=== PATIENT | female | born 1965 | race Caucasian/White ===

== ENCOUNTER 2018-09-26 10:50 | Emergency (ER) | payer SELFPAY ==
[2018-09-26] MEDS ORDERED: MEPERIDINE HCL 50 MG/ML AMP ONE (11:44)
[2018-09-26] MEDS ORDERED: METOCLOPRAMIDE 10 MG/2mL INJ ONE (11:44)
[2018-09-26] MEDS ORDERED: IBUPROFEN 400 MG TAB ONE (11:45)
[2018-09-26] MEDS ORDERED: NA CHLORIDE 0.9% 50 ML IV ONE (11:45)
[2018-09-26] MEDS ORDERED: NA CHLORIDE 0.9% 1,000 ML ONE (11:45)
[2018-09-26] MEDS ORDERED: ONDANSETRON 4 MG/2 ML VIAL ONE (11:45)
--- NOTE | 2018-09-26 15:15 | EDPHYS ---
Physician Documentation [facility] Name: Becca Nagy Age: 53 yrs Sex: Female : 1965 Arrival Date: 09/26/2018 Time: 10:53 Bed 18 Private MD: ED Physician Jayden Akhtar HPI: 09/26 11:27 This 53 yrs old Female presents to ER via Ambulatory with complaints of rn Headache, Nausea. 11:27 The patient complains of pain to the forehead, left side of the back of head and right rn side of the back of head. The patient describes the headache as aching. Onset: The symptoms/episode began/occurred 3 day(s) ago. Severity of symptoms: At its worst the pain was moderate, in the emergency department the pain is unchanged. The symptoms are alleviated by nothing. the symptoms are aggravated by lights, movement, noise. The patient has experienced similar episodes in the past. The patient has not recently seen a physician. 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 No personal or family hx of brain tumor or aneurysm, no recent head trauma, no fever, no neck stiffness, no rash. . 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 - Social history:: Smoking status: Patient uses tobacco products, smokes one-half pack cigarettes per day. - Ebola Screening: : Patient denies travel to an Ebola-affected area in the 21 days before illness onset. - Family history:: not pertinent. - Hospitalizations: : No recent hospitalization is reported. 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 Head/Face: Normocephalic, atraumatic. Eyes: Pupils equal round and reactive to light, extra-ocular motions intact. Lids and lashes normal. Conjunctiva and sclera are non-icteric and not injected. Cornea within normal limits. Periorbital areas with no swelling, redness, or edema. ENT: MMM Neck: Trachea midline, no thyromegaly or masses palpated, and no cervical lymphadenopathy. Supple, full range of motion without nuchal rigidity, or vertebral point tenderness. No Meningismus. Skin: Warm, dry with normal turgor. Normal color with no rashes, no lesions, and no evidence of cellulitis. MS/ Extremity: Pulses equal, no cyanosis. Neurovascular intact. Full, normal range of motion. Equal circumference. Neuro: Awake and alert, GCS 15, oriented to person, place, time, and situation. Cranial nerves II-XII grossly intact. Motor strength 5/5 in all extremities. Sensory grossly intact. Cerebellar exam normal. Normal gait. Vital Signs: 10:57 BP 124 / 80; Pulse 57; Resp 18; Temp 97.6(O); Pulse Ox 100% on R/A; Weight 70.31 kg aj1 (R); Height 5 ft. 6 in. (167.64 cm) (R); Pain 10/10; 12:00 BP 110 / 74; Pulse 54; Resp 18; Pulse Ox 97% on R/A; ph 13:00 BP 99 / 76; Pulse 47; Resp 16; Pulse Ox 99% on R/A; ph 14:00 BP 114 / 78; Pulse 52; Resp 18; Temp 97.4; Pulse Ox 99% on R/A; ph 10:57 Body Mass Index 25.02 (70.31 kg, 167.64 cm) aj1 Freeland Coma Score: 13:38 Eye Response: spontaneous(4). Verbal Response: oriented(5). Motor Response: obeys rn commands(6). Total: 15. MDM: 10:57 Patient medically screened. rn 13:38 Differential diagnosis: hypertensive headache, migraine, tension headache, vasomotor rn headache. Data reviewed: vital signs, nurses notes, and as a result, I will discharge patient. Counseling: I had a detailed discussion with the patient and/or guardian regarding: the historical points, exam findings, and any diagnostic results supporting the discharge/admit diagnosis, the need for outpatient follow up, to return to the emergency department if symptoms worsen or persist or if there are any questions or concerns that arise at home. Response to treatment: the patient's symptoms have markedly improved after treatment, and as a result, I will discharge patient. Special discussion: I discussed with the patient/guardian in detail that at this point there is no indication for admission to the hospital. It is understood, however, that if the symptoms persist or worsen the patient needs to return immediately for re-evaluation. 09/26 11:25 Order name: IV Start; Complete Time: 11:27 rn Administered Medications: 11:45 Drug: Demerol 50 mg Route: IVP; Site: right forearm; ph 13:00 Follow up: Response: No adverse reaction; Pain is decreased ph 11:45 Drug: NS 0.9% 1000 ml Route: IV; Rate: 1000 ml; Site: right forearm; ph 16:26 Follow up: Response: No adverse reaction; Pain is decreased; IV Status: Completed ph infusion; IV Intake: 1000ml 11:47 Drug: Reglan 10 mg Route: IVP; Site: right forearm; ph 13:00 Follow up: Response: No adverse reaction; Pain is decreased ph 11:50 Drug: Motrin 800 mg Route: PO; ph 13:00 Follow up: Response: No adverse reaction; Pain is decreased ph Disposition: 09/26/18 13:39 Discharged to Home. Impression: Headache. - Condition is Stable. - Discharge Instructions: Migraine Headache. - Prescriptions for orphenadrine citrate 100 mg Oral Tablet Sustained Release - take 1 tablet by ORAL route 2 times per day As needed; 20 tablet. - Medication Reconciliation Form, Thank You Letter, Antibiotic Education, Prescription Opioid Use, Work release form form. - Follow up: Private Physician; When: As needed; Reason: Recheck today's complaints, Re-evaluation by your physician. Follow up: Arslan Tafoya MD; When: As needed; Reason: Recheck today's complaints, Re-evaluation by your physician. - Problem is new. - Symptoms have improved. Signatures: Liza Love RN RN aj1 Jayden Akhtar MD MD rn Hall, Patricia, RN RN ph Corrections: (The following items were deleted from the chart) 13:43 13:39 09/26/2018 13:39 Discharged to Home. Impression: Headache. Condition is Stable. rn Forms are Medication Reconciliation Form, Thank You Letter, Antibiotic Education, Prescription Opioid Use. Follow up: Private Physician; When: As needed; Reason: Recheck today's complaints, Re-evaluation by your physician. Problem is new. Symptoms have improved. rn 14:13 13:43 09/26/2018 13:39 Discharged to Home. Impression: Headache. Condition is Stable. ph Discharge Instructions: Migraine Headache. Prescriptions for orphenadrine citrate 100 mg Oral Tablet Sustained Release - take 1 tablet by ORAL route 2 times per day As needed; 20 tablet. and Forms are Medication Reconciliation Form, Thank You Letter, Antibiotic Education, Prescription Opioid Use. Follow up: Private Physician; When: As needed; Reason: Recheck today's complaints, Re-evaluation by your physician. Follow up: Arslan Tafoya; When: As needed; Reason: Recheck today's complaints, Re-evaluation by your physician. Problem is new. Symptoms have improved. rn
--- NOTE | 2018-09-26 15:15 | ER ---
Nurse's Notes [facility] Name: Becca Nagy Age: 53 yrs Sex: Female : 1965 Arrival Date: 09/26/2018 Time: 10:53 Bed 18 Private MD: Diagnosis: Headache Presentation: 09/26 10:55 Presenting complaint: Patient states: "I'm having migraine headaches again, I want to aj1 sleep all the time, its in my neck its going in my back, its making me nauseous." Reports she has been having this migraine for the past 2 weeks. She has been taking Tylenol at home with no relief. Transition of care: patient was not received from another setting of care. Onset of symptoms was September 2018. Risk Assessment: Do you want to hurt yourself or someone else? Patient reports no desire to harm self or others. Initial Sepsis Screen: Does the patient meet any 2 criteria? No. Patient's initial sepsis screen is negative. Does the patient have a suspected source of infection? No. Patient's initial sepsis screen is negative. Care prior to arrival: None. 10:55 Method Of Arrival: [facility] 10:55 Acuity: ARIEL 3 aj1 Triage Assessment: 10:57 Headache History: The patient has had previous headaches and this one is similar to aj1 previous episodes. General: Appears in no apparent distress. uncomfortable, Behavior is calm, cooperative, appropriate for age. Pain: Complains of pain in forehead and occipital area Pain radiates to left trapezius, right trapezius, right arm and neck Pain currently is 10 out of 10 on a pain scale. Pain began 2 weeks ago Also complains of nausea, fatigue. Neuro: Level of Consciousness is awake, alert, obeys commands, Oriented to person, place, time, situation. Neuro: Reports headache. Cardiovascular: Patient's skin is warm and dry. Respiratory: Airway is patent Respiratory effort is even, unlabored, Respiratory pattern is regular, symmetrical. 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 - Social history:: Smoking status: Patient uses tobacco products, smokes one-half pack cigarettes per day. - Ebola Screening: : Patient denies travel to an Ebola-affected area in the 21 days before illness onset. - Family history:: not pertinent. - Hospitalizations: : No recent hospitalization is reported. Screenin:26 Abuse screen: Denies threats or abuse. Denies injuries from another. Nutritional ph screening: No deficits noted. Tuberculosis screening: No symptoms or risk factors identified. Fall Risk None identified. Assessment: 11:24 General: Appears in no apparent distress. uncomfortable, well groomed, Behavior is ph calm, cooperative, appropriate for age. Pain: Complains of pain in face and left foot. Neuro: Level of Consciousness is awake, alert, obeys commands, Oriented to person, place, time, situation, Moves all extremities. Full function Speech is normal, Pupils are PERRLA, Reports dizziness, headache photophobia. Cardiovascular: Capillary refill < 3 seconds in bilateral fingers Patient's skin is warm and dry. Respiratory: Airway is patent Respiratory effort is even, unlabored, Respiratory pattern is regular, symmetrical. GI: Reports nausea, Patient currently denies abdominal pain, diarrhea, vomiting. Derm: Skin is intact, Skin is pink, warm \\T\\ dry. Musculoskeletal: Circulation, motion, and sensation intact. Range of motion: intact in all extremities, Swelling present in left fourth toe Reports pain in left fourth toe. 12:30 Reassessment: Patient appears in no apparent distress at this time. Patient and/or ph family updated on plan of care and expected duration. Pain level reassessed. Pt resting quietly w/ eyes closed, VSS. 13:30 Reassessment: Patient appears in no apparent distress at this time. No changes from ph previously documented assessment. Patient and/or family updated on plan of care and expected duration. Pain level reassessed. Pt awakens easily, reports that pain and nausea have improved. 14:00 Reassessment: Patient appears in no apparent distress at this time. Patient and/or ph family updated on plan of care and expected duration. Pain level reassessed. Patient is alert, oriented x 3, equal unlabored respirations, skin warm/dry/pink. Patient states feeling better. Patient states symptoms have improved. Vital Signs: 10:57 BP 124 / 80; Pulse 57; Resp 18; Temp 97.6(O); Pulse Ox 100% on R/A; Weight 70.31 kg aj1 (R); Height 5 ft. 6 in. (167.64 cm) (R); Pain 10/10; 12:00 BP 110 / 74; Pulse 54; Resp 18; Pulse Ox 97% on R/A; ph 13:00 BP 99 / 76; Pulse 47; Resp 16; Pulse Ox 99% on R/A; ph 14:00 BP 114 / 78; Pulse 52; Resp 18; Temp 97.4; Pulse Ox 99% on R/A; ph 10:57 Body Mass Index 25.02 (70.31 kg, 167.64 cm) aj1 Angela Coma Score: 13:38 Eye Response: spontaneous(4). Verbal Response: oriented(5). Motor Response: obeys rn commands(6). Total: 15. ED Course: 10:53 Patient arrived in ED. mr 10:57 Jayden Akhtar MD is Attending Physician. rn 10:57 Triage completed. aj1 10:57 Arm band placed on Patient placed in an exam room. aj1 11:20 Initial lab(s) drawn, by co, sent to lab. Inserted saline lock: 20 gauge in right ph forearm, using aseptic technique. 11:24 Yany Morton, RN is Primary Nurse. ph 11:26 Patient has correct armband on for positive identification. Bed in low position. Call ph light in reach. Side rails up X2. Pulse ox on. NIBP on. Door closed. Noise minimized. Lights dimmed. Warm blanket given. Pillow given. 13:43 Arslan Tafoya MD is Referral Physician. rn 14:00 No provider procedures requiring assistance completed. IV discontinued, intact, ph bleeding controlled, No redness/swelling at site. Pressure dressing applied. Administered Medications: 11:45 Drug: Demerol 50 mg Route: IVP; Site: right forearm; ph 13:00 Follow up: Response: No adverse reaction; Pain is decreased ph 11:45 Drug: NS 0.9% 1000 ml Route: IV; Rate: 1000 ml; Site: right forearm; ph 16:26 Follow up: Response: No adverse reaction; Pain is decreased; IV Status: Completed ph infusion; IV Intake: 1000ml 11:47 Drug: Reglan 10 mg Route: IVP; Site: right forearm; ph 13:00 Follow up: Response: No adverse reaction; Pain is decreased ph 11:50 Drug: Motrin 800 mg Route: PO; ph 13:00 Follow up: Response: No adverse reaction; Pain is decreased ph Intake: 16:26 IV: 1000ml; Total: 1000ml. ph Outcome: 13:39 Discharge ordered by . rn 14:13 Patient left the ED. ph 14:13 Discharged to home ambulatory. ph 14:13 Condition: good 14:13 Discharge instructions given to patient, Instructed on discharge instructions, follow up and referral plans. medication usage, Demonstrated understanding of instructions, follow-up care, medications, Prescriptions given X 1. Signatures: Liza Love RN RN ajDimple Miller Roman, MD MD rn Hall, Patricia, RN RN ph Corrections: (The following items were deleted from the chart) 11:56 11:53 NS 0.9% 1000 ml IV at 1000 ml in right forearm ph ph
[2018-09-26 16:17] VITALS: BP 124/80; TEMP 97.6; O2SAT 100
== END 2018-09-26 14:13 | disposition home or self-care (01) ==
LOC: ER 10:50
DX: R51 Headache (principal); R11.0 Nausea; I10 Essential (primary) hypertension; F17.210 Nicotine dependence, cigarettes, uncomplicated
CPT/HCPCS: 96361; 96374; 96375; 99284; J2175; J2405; J2765; J7030

== ENCOUNTER 2018-10-28 17:39 | Emergency (ER) | payer SELFPAY ==
[2018-10-28 18:08] LABS: Urine Blood 2+ (NEG); Urine Glucose TRACE (NEG); Urine Protein 3+ (NEG); Urine pH 6.5 (5.0-7.0)
--- NOTE | 2018-10-28 19:04 | RAD REPORT ---
EXAM DESCRIPTION: RAD - Hip Left 2 View - 10/28/2018 6:54 pm CLINICAL HISTORY: Hip pain, left lower quadrant and groin pain COMPARISON: None. FINDINGS: AP and frogleg views of the left hip were obtained. There is no fracture or dislocation. N o acute or destructive bony process seen. No periarticular soft tissue abnormality. No finding to suspect inguinal hernia IMPRESSION: Negative left hip examination for acute or significant findings.
[2018-10-28] MEDS ORDERED: KETOROLAC 30 MG/ML INJ ONE (19:17)
[2018-10-28 19:32] LABS: Urine Bacteria LOADED /HPF (<20); Urine Culture Reflex Order REFLEXED
--- NOTE | 2018-10-28 20:32 | EDPHYS ---
Physician Documentation [facility] Name: Becca Nagy Age: 53 yrs Sex: Female : 1965 Arrival Date: 10/28/2018 Time: 17:41 Bed 20 Private MD: None, None ED Physician Rex Sanon HPI: 10/28 18:25 This 53 yrs old Female presents to ER via Ambulatory with complaints of Hip cp Pain. 18:25 The patient or guardian reports decreased range of motion, pain. The complaints affect cp the left hip. 18:25 Onset: The symptoms/episode began/occurred suddenly, 1 hour(s) ago. cp 18:25 Associated signs and symptoms: Pertinent negatives: abdominal pain, diarrhea, cp dizziness, fever, incontinence, vomiting, weakness, injury or fall. Severity of symptoms: in the emergency department the symptoms are unchanged, despite home interventions. 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 - Social history:: Smoking status: Patient uses tobacco products, smokes one pack cigarettes per day. - Ebola Screening: : Patient negative for fever greater than or equal to 101.5 degrees Fahrenheit, and additional compatible Ebola Virus Disease symptoms Patient denies exposure to infectious person Patient denies travel to an Ebola-affected area in the 21 days before illness onset No symptoms or risks identified at this time. ROS: 18:30 Constitutional: Negative for body aches, chills, fever, poor PO intake. cp 18:30 Eyes: Negative for injury, pain, redness, and discharge. cp Exam: 18:40 Constitutional: The patient appears in no acute distress, alert, awake, non-toxic, well cp developed, well nourished, uncomfortable. 18:40 Head/Face: Normocephalic, atraumatic. cp 18:40 Eyes: Periorbital structures: appear normal, Conjunctiva: normal, no exudate, no injection, Sclera: no appreciated abnormality, Lids and lashes: appear normal, bilaterally. 18:40 ENT: External ear(s): are unremarkable, Nose: is normal, Mouth: Lips: moist, Oral mucosa: pink and intact, moist, Posterior pharynx: is normal, airway is patent, no erythema, no exudate. 18:40 Neck: ROM/movement: is normal, is supple, without pain, no range of motions limitations, no nuchal rigidity. 18:40 Chest/axilla: Inspection: normal, Palpation: is normal, no crepitus, no tenderness. 18:40 Cardiovascular: Rate: normal, Rhythm: regular. 18:40 Respiratory: the patient does not display signs of respiratory distress, Respirations: normal, no use of accessory muscles, no retractions, no splinting, no tachypnea, labored breathing, is not present. 18:40 Abdomen/GI: Inspection: abdomen appears normal, Palpation: abdomen is soft and non-tender, in all quadrants, rebound tenderness, is not appreciated, voluntary guarding, is not appreciated, involuntary guarding, is not appreciated. 18:40 Back: pain, is absent, ROM is normal. 18:40 Musculoskeletal/extremity: Extremities: grossly normal except: noted in the left hip: pain, tenderness, painful ROM, There is no evidence of deformity. 18:40 Skin: no rash present. Vital Signs: 17:46 BP 107 / 72; Pulse 91; Resp 16; Temp 97.4; Pulse Ox 97% on R/A; Weight 70.76 kg; Height aj 5 ft. 6 in. (167.64 cm); 21:15 BP 112 / 80; Pulse 85; Resp 16; Pulse Ox 98% on R/A; jb4 17:46 Body Mass Index 25.18 (70.76 kg, 167.64 cm) aj MDM: 18:01 Patient medically screened. chilango 19:00 Differential diagnosis: intertrochanteric fracture, femoral neck fracture, femoral cp shaft fracture, bursitis, arthritis. 20:30 Data reviewed: vital signs, nurses notes, lab test result(s), urinalysis, radiologic cp studies, and as a result, I will discharge patient. 20:30 Counseling: I had a detailed discussion with the patient and/or guardian regarding: the cp historical points, exam findings, and any diagnostic results supporting the discharge/admit diagnosis, lab results, radiology results, the need for outpatient follow up, a family practitioner, to return to the emergency department if symptoms worsen or persist or if there are any questions or concerns that arise at home. Response to treatment: the patient's symptoms have markedly improved after treatment, and as a result, I will discharge patient. 10/28 18:00 Order name: Urine Dipstick--Ancillary (enter results); Complete Time: 18:15 bd 10/28 18:15 Interpretation: Normal except: UBLD 2+; UPROT 3+; U NIT POSITIVE; UESTR 3+. cp 10/28 18:17 Order name: Urine Microscopic Only; Complete Time: 19:55 cp 10/28 19:55 Interpretation: Normal except: UWBC LOADED; URBC 5-10; UBACT LOADED. cp 10/28 18:17 Order name: XRAY Hip LEFT 2 view; Complete Time: 19:55 cp 10/28 19:35 Order name: Urine Culture EDMS 10/28 18:17 Order name: Urine Test (obtain specimen); Complete Time: 19:08 cp Administered Medications: 19:15 Drug: TORadol 60 mg Route: IM; Site: right gluteus; ae4 20:47 Follow up: Response: Pain is unchanged, physician notified ak1 21:15 Drug: fentaNYL (PF) 25 mcg Route: IM; Site: left gluteus; jb4 21:15 Follow up: Response: Medication administered at discharge. jb4 21:15 Drug: Bactrim (160 mg-800 mg (DS) 1 tablet Route: PO; jb4 21:15 Follow up: Response: Medication administered at discharge. jb4 Disposition: 10/29 06:21 Co-signature as Attending Physician, Rex Sanon MD I agree with the assessment and chilango plan of care. Disposition: 10/28/18 20:31 Discharged to Home. Impression: Pain in left hip, Urinary tract infection, site not specified. - Condition is Stable. - Discharge Instructions: Urinary Tract Infection, Adult, Hip Pain. - Prescriptions for Ibuprofen 800 mg Oral Tablet - take 1 tablet by ORAL route every 8 hours As needed take with food; 30 tablet. Tramadol 50 mg Oral Tablet - take 1 tablet by ORAL route every 8 hours as needed; 12 tablet. Bactrim DS 800- 160 mg Oral Tablet - take 1 tablet by ORAL route every 12 hours for 7 days; 14 tablet. - Medication Reconciliation Form, Thank You Letter, Antibiotic Education, Prescription Opioid Use form. - Follow up: Private Physician; When: 2 - 3 days; Reason: Recheck today's complaints. - Problem is new. - Symptoms have improved. Signatures: Dispatcher [employer] EDSosa Turcios, RN RN Rex Walters MD MD cha Page, Corey, PA PA cp Arcenio Patel RN RN jb4 Sawyer Alva RN RN ae4 Maddison Alston RN ak1 Corrections: (The following items were deleted from the chart) 10/28 21:38 20:31 10/28/2018 20:31 Discharged to Home. Impression: Pain in left hip; Urinary tract jb4 infection, site not specified. Condition is Stable. Forms are Medication Reconciliation Form, Thank You Letter, Antibiotic Education, Prescription Opioid Use. Follow up: Private Physician; When: 2 - 3 days; Reason: Recheck today's complaints. Problem is new. Symptoms have improved. cp
--- NOTE | 2018-10-28 20:32 | ER ---
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 Transition of care: patient was not received from another setting of care. Onset of symptoms was October 28, 2018. Risk Assessment: Do you want to hurt yourself or someone else? Patient reports no desire to harm self or others. Initial Sepsis Screen: Does the patient meet any 2 criteria? No. Patient's initial sepsis screen is negative. Does the patient have a suspected source of infection? No. Patient's initial sepsis screen is negative. Care prior to arrival: None. 17:45 Method Of Arrival: Ambulatory 17:45 Acuity: ARIEL 3 aj Triage Assessment: 17:46 General: Appears in no apparent distress. uncomfortable, Behavior is calm, cooperative, aj appropriate for age. Pain: Complains of pain in left lower quadrant and left inguinal area. Neuro: Level of Consciousness is awake, alert, obeys commands, Oriented to person, place, time, situation, Appropriate for age. Respiratory: Airway is patent Respiratory effort is even, unlabored, Respiratory pattern is regular, symmetrical. GI: Reports nausea. : Reports pain in left in suprapubic area lower quadrant(s). Derm: Skin is intact, is healthy with good turgor, Skin is pink, warm \T\ dry. normal. 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 - Social history:: Smoking status: Patient uses tobacco products, smokes one pack cigarettes per day. - Ebola Screening: : Patient negative for fever greater than or equal to 101.5 degrees Fahrenheit, and additional compatible Ebola Virus Disease symptoms Patient denies exposure to infectious person Patient denies travel to an Ebola-affected area in the 21 days before illness onset No symptoms or risks identified at this time. Screenin:22 Abuse screen: Denies threats or abuse. Nutritional screening: No deficits noted. ae4 Tuberculosis screening: No symptoms or risk factors identified. Fall Risk None identified. Assessment: 19:19 General: Appears distressed, uncomfortable, Behavior is cooperative, anxious. Pain: ae4 Complains of pain in left hip Pain radiates to left gluteus naeem. Neuro: Level of Consciousness is awake, alert, obeys commands, Oriented to person, place, time, situation. Cardiovascular: Patient's skin is warm and dry. Respiratory: Airway is patent Respiratory effort is even, unlabored, Respiratory pattern is regular, symmetrical. GI: Abdomen is round non-distended. : No signs and/or symptoms were reported regarding the genitourinary system. EENT: No signs and/or symptoms were reported regarding the EENT system. Derm: No visible bruising, swelling or deformity to left hip area. Musculoskeletal: No signs and/or symptoms reported regarding the musculoskeletal system. 20:00 Reassessment: Patient appears in no apparent distress at this time. Patient and/or jb4 family updated on plan of care and expected duration. Pain level reassessed. Patient is alert, oriented x 3, equal unlabored respirations, skin warm/dry/pink. 21:15 Reassessment: Patient appears in no apparent distress at this time. Patient and/or jb4 family updated on plan of care and expected duration. Pain level reassessed. Patient is alert, oriented x 3, equal unlabored respirations, skin warm/dry/pink. Patient states feeling better. Vital Signs: 17:46 BP 107 / 72; Pulse 91; Resp 16; Temp 97.4; Pulse Ox 97% on R/A; Weight 70.76 kg; Height aj 5 ft. 6 in. (167.64 cm); 21:15 BP 112 / 80; Pulse 85; Resp 16; Pulse Ox 98% on R/A; jb4 17:46 Body Mass Index 25.18 (70.76 kg, 167.64 cm) ED Course: 17:41 Patient arrived in ED. dl4 17:42 None, None is Private Physician. dl4 17:46 Triage completed. aj 17:46 Arm band placed on right wrist. Patient placed in an exam room. aj 17:56 Rex Yepez PA is PHCP. cp 17:56 Rex Sanon MD is Attending Physician. cp 17:58 Urine collected: clean catch specimen, ORANGE COLOR. mh5 17:59 Patient has correct armband on for positive identification. Bed in low position. Call mh5 light in reach. Warm blanket given. Pulse ox on. NIBP on. 18:06 Sawyer Alva, RN is Primary Nurse. ae4 18:54 XRAY Hip LEFT 2 view In Process Unspecified. EDMS 19:14 Urine Microscopic Only Sent. mh5 21:15 No provider procedures requiring assistance completed. Patient did not have IV access jb4 during this emergency room visit. Administered Medications: 19:15 Drug: TORadol 60 mg Route: IM; Site: right gluteus; ae4 20:47 Follow up: Response: Pain is unchanged, physician notified ak1 21:15 Drug: fentaNYL (PF) 25 mcg Route: IM; Site: left gluteus; jb4 21:15 Follow up: Response: Medication administered at discharge. jb4 21:15 Drug: Bactrim (160 mg-800 mg (DS) 1 tablet Route: PO; jb4 21:15 Follow up: Response: Medication administered at discharge. jb4 Outcome: 20:31 Discharge ordered by MD. cp 21:15 Discharged to home ambulatory, with family. jb4 21:15 Condition: stable 21:15 Discharge instructions given to patient, Instructed on discharge instructions, follow up and referral plans. medication usage, Demonstrated understanding of instructions, follow-up care, medications, Prescriptions given X 3. 21:38 Patient left the ED. jb4 Addendum: 10/31/2018 08:13 Addendum: Culture Results: Positive urine culture. No further action required. Bacteria i w sensitive to prescribed antibiotic. Signatures: Dispatcher [employer] EDSosa Turcios RN RN aj Williams, Irene, RN RN iw Krenek, Amber, RN RN ak1 Rex Yepez PA PA cp Bryson, James, RN RN jb4 Alina Luther 5 Gary Campos 4 Sawyer Alva, EVA RN ae4
[2018-10-28] MEDS ORDERED: SMZ./TMP. 800/160 MG TABLET ONE (21:17)
[2018-10-28] MEDS ORDERED: FENTANYL CITR 100 MCG/2 ML ONE (21:18)
[2018-10-28 22:19] VITALS: BP 107/72; TEMP 97.4; O2SAT 97
== END 2018-10-28 21:38 | disposition home or self-care (01) ==
LOC: ER 17:39
DX: M25.552 Pain in left hip (principal); N39.0 Urinary tract infection, site not specified; I10 Essential (primary) hypertension; F17.210 Nicotine dependence, cigarettes, uncomplicated
CPT/HCPCS: 81003; 81015; 87077; 87086; 87088; 87186; 96372; 99284; J3010

== ENCOUNTER 2019-03-07 00:20 | Emergency (ER) | payer SELFPAY ==
--- OUTSIDE RECORDS SUMMARY | 2019-03-07 00:21 | XMS REPORT ---
:1965 Demographics Address [address] [place] [address] Preferred Language Unknown Marital Status Unknown Adventist Affiliation Unknown Race Unknown Additional Race(s) Unavailable Ethnic Group Unknown [facility] Address [address] [place] [address] Dr. Loyola [address] [place] [id number] Care Team Providers Name Role Phone Unavailable Unavailable Unavailable Problems This patient has no known problems. Allergies, Adverse Reactions, Alerts This patient has no known allergies or adverse reactions. Medications This patient has no known medications.
[2019-03-07] MEDS ORDERED: NA CHLORIDE 0.9% 1,000 ML ONE (02:00)
[2019-03-07] MEDS ORDERED: MORPHINE 4 MG/ML SYR ONE ×2 (02:00→04:05)
[2019-03-07] MEDS ORDERED: ONDANSETRON 4 MG/2 ML VIAL ONE (02:01)
[2019-03-07 02:20] LABS: Hematocrit 38.6 % (36.0-45.0); Lymphocytes % 25.5 % (15.3-44.8); MPV 9.8 fL (7.6-11.3); RBC Red Blood Cell Count 4.36 M/uL (3.86-4.86)
[2019-03-07 02:23] LABS: Albumin 3.5 g/dL (3.4-5.0); Bilirubin Direct 0.1 mg/dL (0-0.2); Bilirubin Total 0.5 mg/dL (0.2-1.0); Potassium 3.5 mmol/L (3.5-5.1); Protein, Total 7.1 g/dL (6.4-8.2)
[2019-03-07 03:22] LABS: Urine Blood TRACE (NEG); Urine Glucose NEGATIVE (NEG); Urine Protein NEGATIVE (NEG); Urine Specific Gravity 1.025 (1.005-1.030)
[2019-03-07 03:29] LABS: Urine Bacteria 20-50 /HPF (<20); Urine Culture Reflex Order REFLEXED; Urine Mucus 2+ /HPF (NONE SEEN)
[2019-03-07] MEDS ORDERED: CEFTRIAXONE/SWI 1gm 1 GM/10 ML SYR ONE (04:40)
--- NOTE | 2019-03-07 04:48 | ER ---
Nurse's Notes [facility] Name: Becca Nagy Age: 54 yrs Sex: Female : 1965 Arrival Date: 03/07/2019 Time: 00:21 Bed 2 Private MD: Diagnosis: Urinary tract infection, site not specified;Low back pain;Cholelithiasis;Diverticular disease of intestine Presentation: 03/07 01:24 Presenting complaint: Patient states: "I think I have something wrong with my kidney. jd3 it has been pain on and off on m left side and hip, but today it has been constant.". Transition of care: patient was not received from another setting of care. Onset of symptoms was March 07, 2019. Risk Assessment: Do you want to hurt yourself or someone else? Patient reports no desire to harm self or others. Initial Sepsis Screen: Does the patient meet any 2 criteria? No. Patient's initial sepsis screen is negative. Does the patient have a suspected source of infection? No. Patient's initial sepsis screen is negative. Care prior to arrival: None. 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 - Social history:: Smoking status: Patient uses tobacco products, smokes one-half pack cigarettes per day. - Ebola Screening: : Patient negative for fever greater than or equal to 101.5 degrees Fahrenheit, and additional compatible Ebola Virus Disease symptoms. Screenin:28 Abuse screen: Denies threats or abuse. Nutritional screening: No deficits noted. jd3 Tuberculosis screening: No symptoms or risk factors identified. Fall Risk Ambulatory Aid- None/Bed Rest/Nurse Assist (0 pts). Gait- Normal/Bed Rest/Wheelchair (0 pts) Mental Status- Oriented to own ability (0 pts). Total Muñiz Fall Scale indicates No Risk (0-24 pts). Assessment: 01:27 General: Appears in no apparent distress. uncomfortable, Behavior is calm, cooperative, jd3 appropriate for age. Pain: Complains of pain in left flank Quality of pain is described as sharp, tender. Neuro: Level of Consciousness is awake, alert, obeys commands, Oriented to person, place, time, situation. Cardiovascular: Denies chest pain, Capillary refill < 3 seconds Patient's skin is warm and dry. Respiratory: Airway is patent Respiratory effort is even, unlabored, Respiratory pattern is regular, symmetrical, Denies cough, shortness of breath. GI: No signs and/or symptoms were reported involving the gastrointestinal system. Patient currently denies diarrhea, nausea, vomiting. : Reports pain in left flank(s). EENT: No signs and/or symptoms were reported regarding the EENT system. Derm: Skin is intact, Skin is dry, Skin is normal, Skin temperature is warm. Musculoskeletal: Circulation, motion, and sensation intact. Range of motion: intact in all extremities. 02:09 Reassessment: Patient appears in no apparent distress at this time. No changes from jd3 previously documented assessment. Patient and/or family updated on plan of care and expected duration. Pain level reassessed. Patient is alert, oriented x 3, equal unlabored respirations, skin warm/dry/pink. 03:04 Reassessment: Patient appears in no apparent distress at this time. No changes from jd3 previously documented assessment. Patient and/or family updated on plan of care and expected duration. Pain level reassessed. Patient is alert, oriented x 3, equal unlabored respirations, skin warm/dry/pink. 04:25 Reassessment: Patient appears in no apparent distress at this time. No changes from jd3 previously documented assessment. Patient and/or family updated on plan of care and expected duration. Pain level reassessed. Patient is alert, oriented x 3, equal unlabored respirations, skin warm/dry/pink. 05:24 Reassessment: Patient appears in no apparent distress at this time. Patient and/or jd3 family updated on plan of care and expected duration. Pain level reassessed. Patient is alert, oriented x 3, equal unlabored respirations, skin warm/dry/pink. reported understanding of discharge instructions. Patient states feeling better. Vital Signs: 01:26 BP 101 / 69; Pulse 62; Resp 17 S; Temp 97.6(TE); Pulse Ox 98% on R/A; Weight 72.57 kg jd3 (R); Height 5 ft. 6 in. (167.64 cm) (R); Pain 10/10; 02:08 BP 102 / 63; Pulse 62; Resp 16 S; Pulse Ox 98% on R/A; jd3 03:04 BP 111 / 75; Pulse 73; Resp 17 S; Pulse Ox 97% on R/A; jd3 04:25 BP 123 / 79; Pulse 75; Resp 18 S; Pulse Ox 100% on R/A; jd3 01:26 Body Mass Index 25.82 (72.57 kg, 167.64 cm) jd3 ED Course: 00:21 Patient arrived in ED. ds1 01:06 Thomas Carr PA is PHCP. jmm 01:06 Rex Sanon MD is Attending Physician. jmm 01:17 Patrick Shi, RN is Primary Nurse. jd3 01:25 Triage completed. jd3 01:27 Arm band placed on. jd3 01:29 Patient has correct armband on for positive identification. Bed in low position. Call jd3 light in reach. Side rails up X2. 01:55 Inserted saline lock: 20 gauge in right forearm, using aseptic technique. Blood jd3 collected. 04:48 Andreea Ferro MD is Referral Physician. chilango 04:51 Emanuel Moraes MD is Referral Physician. chilango 05:22 No provider procedures requiring assistance completed. IV discontinued, intact, jd3 bleeding controlled, No redness/swelling at site. Pressure dressing applied. 05:57 CT Abd/Pelvis - IV Contrast Only In Process Unspecified. EDMS Administered Medications: 02:07 Drug: morphine 4 mg Route: IVP; Site: right forearm; jd3 03:05 Follow up: Response: No adverse reaction; RASS: Alert and Calm (0) jd3 02:07 Drug: Zofran 4 mg Route: IVP; Site: right forearm; jd3 03:05 Follow up: Response: No adverse reaction jd3 02:07 Drug: NS 0.9% 1000 ml Route: IV; Rate: 1 bolus; Site: right forearm; jd3 04:50 Follow up: Response: No adverse reaction; IV Status: Completed infusion; IV Intake: jd3 1000ml 04:10 Drug: morphine 4 mg Route: IVP; Site: right forearm; jd3 04:49 Follow up: Response: No adverse reaction; RASS: Alert and Calm (0) jd3 05:13 Drug: Rocephin 1 grams Route: IV; Rate: per protocol; Site: right antecubital; jd3 05:24 Follow up: Response: No adverse reaction; IV Status: Completed infusion jd3 05:14 Drug: Valium 5 mg Route: PO; jd3 05:26 Follow up: Response: Medication administered at discharge. jd3 05:14 Drug: TORadol 30 mg Route: IVP; Site: right antecubital; jd3 05:26 Follow up: Response: No adverse reaction jd3 05:14 Drug: Cipro 500 mg Route: PO; jd3 05:26 Follow up: Response: Medication administered at discharge. jd3 Intake: 04:50 IV: 1000ml; Total: 1000ml. jd3 Outcome: 04:48 Discharge ordered by MD. kee 05:22 Discharged to home via wheelchair, with family. jd3 05:22 Condition: stable 05:22 Discharge instructions given to patient, family, Instructed on discharge instructions, follow up and referral plans. medication usage, Demonstrated understanding of instructions, follow-up care, medications, Prescriptions given X 4. 05:26 Patient left the ED. jd3 Signatures: Dispatcher [employer] Rex Lamar MD MD cha Mickail, Joel, PA PA jmm Sanford, Demi ds1 Patrick Shi RN RN jd3
--- NOTE | 2019-03-07 04:49 | EDPHYS ---
Physician Documentation [facility] Name: Becca Nagy Age: 54 yrs Sex: Female : 1965 Arrival Date: 03/07/2019 Time: 00:21 Bed 2 Private MD: SAADIA Physician Rex Sanon HPI: 03/07 01:29 This 54 yrs old Female presents to ER via Ambulatory with complaints of jmm Kidney Pain. 01:29 The patient presents with abdominal pain in the lower abdomen. Onset: The jmm symptoms/episode began/occurred gradually, 1 day(s) ago. The symptoms radiate to abdomen. Associated signs and symptoms: Pertinent negatives: fever, vomiting. Modifying factors: The symptoms are alleviated by nothing, the symptoms are aggravated by nothing. This is a 54 year old female with no chronic medical conditions that presents ot the ED with complaints of right side abdominal pain beginning yesterday. Denies history of kidney stones, but states pain is similar to previous episodes of diverticulitis. . 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 - Social history:: Smoking status: Patient uses tobacco products, smokes one-half pack cigarettes per day. - Ebola Screening: : Patient negative for fever greater than or equal to 101.5 degrees Fahrenheit, and additional compatible Ebola Virus Disease symptoms. ROS: 01:29 Constitutional: Negative for fever, chills, and weight loss, Cardiovascular: Negative jmm for chest pain, palpitations, and edema, Respiratory: Negative for shortness of breath, cough, wheezing, and pleuritic chest pain. 01:29 Abdomen/GI: Positive for abdominal pain. 01:29 Back: Positive for flank pain. 01:29 All other systems are negative. Exam: 01:29 Constitutional: This is a well developed, well nourished patient who is awake, alert, jmm and in no acute distress. Head/Face: atraumatic. Eyes: EOMI, no conjunctival erythema appreciated ENT: Moist Mucus Membranes Neck: Trachea midline, Supple Chest/axilla: Normal chest wall appearance and motion. Cardiovascular: Regular rate and rhythm. No edema appreciated Respiratory: Normal respirations, no respiratory distress appreciated 01: Abdomen/GI: Inspection: abdomen appears normal, Bowel sounds: normal, Palpation: soft, moderate abdominal tenderness, in all quadrants. 01: Back: CVA tenderness, that is moderate, is noted on the right. 01: Musculoskeletal/extremity: ROM: intact in all extremities. 01: Skin: Appearance: Color: normal in color. 01:29 Neuro: Orientation: is normal, Mentation: is normal, Memory: is normal. 01:29 Psych: Behavior/mood is pleasant, cooperative. Vital Signs: 01:26 BP 101 / 69; Pulse 62; Resp 17 S; Temp 97.6(TE); Pulse Ox 98% on R/A; Weight 72.57 kg jd3 (R); Height 5 ft. 6 in. (167.64 cm) (R); Pain 10/10; 02:08 BP 102 / 63; Pulse 62; Resp 16 S; Pulse Ox 98% on R/A; jd3 03:04 BP 111 / 75; Pulse 73; Resp 17 S; Pulse Ox 97% on R/A; jd3 04:25 BP 123 / 79; Pulse 75; Resp 18 S; Pulse Ox 100% on R/A; jd3 01:26 Body Mass Index 25.82 (72.57 kg, 167.64 cm) jd3 MDM: 01:09 Patient medically screened. [facility] 02:48 Data reviewed: vital signs, nurses notes. ED course: . [facility] 03/07 01:12 Order name: Basic Metabolic Panel [facility] 03/07 01:12 Order name: CBC with Diff [facility] 03/07 01:12 Order name: Creatinine for Radiology [facility] 03/07 01:12 Order name: Hepatic Function [facility] 03/07 01:12 Order name: Lipase [facility] 03/07 02:20 Order name: Creatinine (Radiology Only); Complete Time: 02: [facility] 03/07 02:24 Order name: Basic Metabolic Panel; Complete Time: 02: [facility] 03/07 02:24 Order name: Liver (Hepatic) Function; Complete Time: 02: [facility] 03/07 02:24 Order name: Lipase; Complete Time: 02:26 [facility] 03/07 02:36 Order name: CBC with Automated Diff; Complete Time: 02:37 [facility] 03/07 03:01 Order name: Urine Microscopic Only [facility] 03/07 03:18 Order name: Urine Dipstick--Ancillary (enter results) [facility] 03/07 03:18 Order name: Urine --Ancillary (enter results) [facility] 03/07 03:23 Order name: Urine --Ancillary; Complete Time: 04:13 [facility] 03/07 01:12 Order name: IV Saline Lock; Complete Time: 02:06 [facility] 03/07 01:12 Order name: Labs collected and sent; Complete Time: 02:06 [facility] 03/07 01:29 Order name: CT Abd/Pelvis - IV Contrast Only [facility] 03/07 01:29 Order name: Urine Dipstick-Ancillary (obtain specimen); Complete Time: 03:02 [facility] 03/07 03:23 Order name: Urine Dipstick-Ancillary; Complete Time: 04:13 [facility] 03/07 03:29 Order name: Urine Microscopic Only; Complete Time: 04:13 [facility] 03/07 04:15 Order name: Urine Culture chilango Administered Medications: 02:07 Drug: morphine 4 mg Route: IVP; Site: right forearm; jd3 03:05 Follow up: Response: No adverse reaction; RASS: Alert and Calm (0) jd3 02:07 Drug: Zofran 4 mg Route: IVP; Site: right forearm; jd3 03:05 Follow up: Response: No adverse reaction jd3 02:07 Drug: NS 0.9% 1000 ml Route: IV; Rate: 1 bolus; Site: right forearm; jd3 04:50 Follow up: Response: No adverse reaction; IV Status: Completed infusion; IV Intake: jd3 1000ml 04:10 Drug: morphine 4 mg Route: IVP; Site: right forearm; jd3 04:49 Follow up: Response: No adverse reaction; RASS: Alert and Calm (0) jd3 05:13 Drug: Rocephin 1 grams Route: IV; Rate: per protocol; Site: right antecubital; jd3 05:24 Follow up: Response: No adverse reaction; IV Status: Completed infusion jd3 05:14 Drug: Valium 5 mg Route: PO; jd3 05:26 Follow up: Response: Medication administered at discharge. jd3 05:14 Drug: TORadol 30 mg Route: IVP; Site: right antecubital; jd3 05:26 Follow up: Response: No adverse reaction jd3 05:14 Drug: Cipro 500 mg Route: PO; jd3 05:26 Follow up: Response: Medication administered at discharge. jd3 Disposition: 04:53 Co-signature as Attending Physician, Rex Sanon MD I agree with the assessment and chilango plan of care. Disposition: 03/07/19 04:48 Discharged to Home. Impression: Urinary tract infection, site not specified, Low back pain, Cholelithiasis, Diverticular disease of intestine. - Condition is Stable. - Discharge Instructions: Diverticulosis, Dysuria, Urinary Tract Infection, Adult, Cholelithiasis, Cholelithiasis, [id number], Urinary Tract Infection, Adult, [id number]. - Prescriptions for Tylenol- Codeine #3 300-30 mg Oral Tablet - take 2 tablets by ORAL route every 6 hours As needed; 24 tablet. Cipro 500 mg Oral Tablet - take 1 tablet by ORAL route every 12 hours for 7 days; 14 tablet. Ibuprofen 600 mg Oral Tablet - take 1 tablet by ORAL route every 6 hours As needed take with food; 20 tablet. Valium 5 mg Oral Tablet - take 1 tablet by ORAL route every 8 hours As needed; 15 tablet. - Medication Reconciliation Form, Thank You Letter, Antibiotic Education, Prescription Opioid Use form. - Follow up: Private Physician; When: 2 - 3 days; Reason: Recheck today's complaints, Continuance of care, Re-evaluation by your physician. Follow up: Andreea Ferro; When: 2 - 3 days; Reason: Recheck today's complaints, Re-evaluation by your physician. Follow up: Emanuel Moraes MD; When: 2 - 3 days; Reason: Recheck today's complaints, Continuance of care, Re-evaluation by your physician. - Problem is new. - Symptoms have improved. Signatures: Dispatcher [employer] Rex Lamar MD MD cha Mickail, Joel, PA PA jmm Davies, Jonathon RN RN jd3 Corrections: (The following items were deleted from the chart) 02:51 02:48 Counseling: I had a detailed discussion with the patient and/or guardian brian regarding: the historical points, exam findings, and any diagnostic results supporting the discharge/admit diagnosis, radiology results, the need to transfer to another facility, [facility] 02:51 02:48 ED course: Patient was accepted at [facility]. Accepting [facility] physician Dr. Allen. brian 04:52 04:48 03/07/2019 04:48 Discharged to Home. Impression: Urinary tract infection, site chilango not specified; Low back pain. Condition is Stable. Discharge Instructions: Dysuria, Urinary Tract Infection, Adult, Urinary Tract Infection, Adult, [id number]. Prescriptions for Tylenol-Codeine #3 300-30 mg Oral Tablet - take 2 tablets by ORAL route every 6 hours As needed; 24 tablet, Cipro 500 mg Oral Tablet - take 1 tablet by ORAL route every 12 hours for 7 days; 14 tablet. and Forms are Medication Reconciliation Form, Thank You Letter, Antibiotic Education, Prescription Opioid Use. Follow up: Private Physician; When: 2 - 3 days; Reason: Recheck today's complaints, Continuance of care, Re-evaluation by your physician. Follow up: Andreea Ferro; When: 2 - 3 days; Reason: Recheck today's complaints, Re-evaluation by your physician. Problem is new. Symptoms have improved. chilango 05:26 04:52 03/07/2019 04:48 Discharged to Home. Impression: Urinary tract infection, site jd3 not specified; Low back pain; Cholelithiasis; Diverticular disease of intestine. Condition is Stable. Discharge Instructions: Dysuria, Urinary Tract Infection, Adult, Urinary Tract Infection, Adult, [id number], Diverticulosis, Cholelithiasis, Cholelithiasis, [id number]. Prescriptions for Tylenol-Codeine #3 300-30 mg Oral Tablet - take 2 tablets by ORAL route every 6 hours As needed; 24 tablet, Cipro 500 mg Oral Tablet - take 1 tablet by ORAL route every 12 hours for 7 days; 14 tablet, Ibuprofen 600 mg Oral Tablet - take 1 tablet by ORAL route every 6 hours As needed take with food; 20 tablet, Valium 5 mg Oral Tablet - take 1 tablet by ORAL route every 8 hours As needed; 15 tablet. and Forms are Medication Reconciliation Form, Thank You Letter, Antibiotic Education, Prescription Opioid Use. Follow up: Private Physician; When: 2 - 3 days; Reason: Recheck today's complaints, Continuance of care, Re-evaluation by your physician. Follow up: Andreea Ferro; When: 2 - 3 days; Reason: Recheck today's complaints, Re-evaluation by your physician. Follow up: Emanuel Moraes; When: 2 - 3 days; Reason: Recheck today's complaints, Continuance of care, Re-evaluation by your physician. Problem is new. Symptoms have improved. chilango
[2019-03-07] MEDS ORDERED: CIPROFLOXACIN HCL 500 MG TAB ONE (05:00)
[2019-03-07] MEDS ORDERED: DIAZEPAM 5 MG TABLET ONE (05:01)
[2019-03-07] MEDS ORDERED: KETOROLAC 30 MG/ML INJ ONE (05:02)
--- NOTE | 2019-03-10 15:20 | RAD REPORT ---
EXAM DESCRIPTION: CT - Abdomen Pelvis W Contrast - 03/07/2019 4:44 am CLINICAL HISTORY: 54-year-old female with right-sided abdominal pain TECHNIQUE: Axial CT imaging of the abdomen and pelvis was performed following the administration of intravenous contrast.. Sagittal and coronal reconstructed images were then performed. The CT stud y is performed according to ALARA (as low as reasonably achievable) or ALARA/IMAGE GENTLY, with autom atic adjustment of mA and/or kV according to patient size. Performed on: 03/07/2019 at 3:40 AM. COMPARISON: Prior CT abdomen and pelvis performed on 04/17/2013 FINDINGS: Lung bases: The lung bases are clear. There is minimal bibasilar atelectasis and/or fibros is. Liver: The liver is enlarged and measures almost 22 cm in craniocaudal dimension. No focal hepatic ab normalities are identified. Liver attenuation is within normal limits. Spleen: The spleen is normal is size, configuration and attenuation. Gallbladder and bile duct: The gallbladder is well distended and contains multiple gallstones. Ther e is no biliary ductal dilatation. Pancreas: The pancreas is grossly normal in size and configuration. Adrenal Glands: The adrenal glands are normal in size and configuration. Kidneys: The kidneys are normal in size and configuration. There is no evidence of hydronephrosis. Th ere is no evidence of nephrolithiasis. No definite solid or cystic renal mass lesions are identified. Stomach: The stomach is grossly normal. There is no definite hiatal hernia. Bowel: The bowel gas pattern is non specific and non obstructive. There is scattered colonic divertic ulosis. Appendix: The appendix is normal. Free air: There is no evidence of free air. Free fluid: There is no evidence of free fluid. Vasculature: The aorta is normal in caliber and contour. The inferior vena cava is grossly unremarkab le. Lymphadenopathy: No pathologic lymphadenopathy is identified. Bladder: The bladder is incompletely distended on this examination. Reproductive: The uterus is grossly within normal limits. Bones: No acute osseous abnormalities are identified. There are moderate degenerative changes of the visualized thoracolumbar spine. There are vacuum discs at multiple levels. There are multiple disc os teophyte complexes throughout the thoracolumbar spine. Soft tissues: No focal soft tissue abnormalities are identified. IMPRESSION: 1. No evidence of acute intra-abdominal or intrapelvic pathology. 2. Cholelithiasis without evidence of biliary ductal dilatation. 3. Colonic diverticulosis without saleem diverticulitis. 4. Hepatomegaly. 5. Moderate degenerative changes throughout the visualized thoracolumbar spine with multilevel disc o steophyte complexes. 6. No CT evidence of acute appendicitis or urinary tract obstruction. Electronically signed by: Lakshmi Villasenor DO 03/07/2019 4:34 AM METERMAN Due to temporary technical issues with the PACS/Fluency reporting system, reports are being signed by the in house radiologist as a courtesy to ensure prompt reporting. The interpreting radiologist is f ully responsible for the content of the report.
== END 2019-03-07 05:26 | disposition home or self-care (01) ==
LOC: ER 00:20
DX: N39.0 Urinary tract infection, site not specified (principal); K80.20 Calculus of gallbladder without cholecystitis without obstruction; K57.90 Diverticulosis of intestine, part unspecified, without perforation or abscess without bleeding; I10 Essential (primary) hypertension; F41.9 Anxiety disorder, unspecified; F17.210 Nicotine dependence, cigarettes, uncomplicated
CPT/HCPCS: 36415; 74177; 80048; 80076; 81003; 81015; 81025; 83690; 85025; 87086; 87088; 96361; 96374; 96375; 99284; J0696; J2405; J7030; Q9967

== ENCOUNTER 2019-06-11 01:38 | Emergency (ER) | payer SELFPAY ==
--- OUTSIDE RECORDS SUMMARY | 2019-06-11 01:41 | XMS REPORT ---
:1965 Demographics Address [address] [place] [address] Email Address NONE Preferred Language Unknown Marital Status Unknown Mosque Affiliation Unknown Race Unknown Additional Race(s) Unavailable Ethnic Group Unknown [facility] Address [address] [place] [address] [address] [place] [address] Care Team Providers Name Role Phone Unavailable Unavailable Unavailable Problems This patient has no known problems. Allergies, Adverse Reactions, Alerts This patient has no known allergies or adverse reactions. Medications This patient has no known medications.
[2019-06-11] MEDS ORDERED: NA CHLORIDE 0.9% 1,000 ML ONE (02:46)
[2019-06-11] MEDS ORDERED: KETOROLAC 30 MG/ML INJ ONE (02:57)
[2019-06-11 03:02] LABS: Absolute Lymphocytes (CBC) 2.5 K/uL (0.7-4.9); Basophils % 0.7 % (0-1.3); Hematocrit 39.7 % (36.0-45.0); MPV 9.7 fL (7.6-11.3); RBC Red Blood Cell Count 4.49 M/uL (3.86-4.86)
[2019-06-11 03:13] LABS: Albumin 3.4 g/dL (3.4-5.0); Bilirubin Direct 0.1 mg/dL (0-0.2); Bilirubin Total 0.4 mg/dL (0.2-1.0); Potassium 3.8 mmol/L (3.5-5.1); Protein, Total 7.4 g/dL (6.4-8.2)
[2019-06-11 03:16] LABS: Urine Blood 1+ (NEG); Urine Glucose NEGATIVE (NEG); Urine Protein NEGATIVE (NEG)
[2019-06-11 03:19] LABS: Urine Mucus 1+ /HPF (NONE SEEN)
[2019-06-11 03:20] LABS: Urine Bacteria <20 /HPF (<20); Urine Culture Reflex Order NOT NEEDED; Urine RBC <5 /HPF (NONE SEEN)
[2019-06-11] MEDS ORDERED: MORPHINE 4 MG/ML SYR ONE (04:39)
[2019-06-11] MEDS ORDERED: ONDANSETRON 4 MG/2 ML VIAL ONE (04:39)
--- NOTE | 2019-06-11 05:01 | ER ---
Nurse's Notes [facility] Name: Becca Nagy Age: 54 yrs Sex: Female : 1965 Arrival Date: 06/11/2019 Time: 01:40 Bed 5 Private MD: Diagnosis: Abdominal tenderness, unspecified site Presentation: 06/10 01:56 Chief complaint: Patient states: bloody stools started at about 9pm yesterday. rv complains of cramping pain on the lower abdomen, going to the back and down to the legs. stool appears to be more darker than the usual. have been constipated for days now and also having nausea. denies fever and vomitin. Coronavirus screen: The patient has NOT traveled to a country currently being monitored by the CDC within the last 14 days. Proceed with normal triage procedures. The patient has NOT had contact with any known and/or suspected case of coronavirus. Proceed with normal triage procedures. Ebola Screen: No symptoms or risks identified at this time. Initial Sepsis Screen: Does the patient meet any 2 criteria? No. Patient's initial sepsis screen is negative. Does the patient have a suspected source of infection? No. Patient's initial sepsis screen is negative. Risk Assessment: Do you want to hurt yourself or someone else? Patient reports no desire to harm self or others. 01:56 Method Of Arrival: Ambulatory rv 01:56 Acuity: ARIEL 3 rv 02:01 Onset of symptoms was June 10, 2019 at 21:00. 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 - Social history:: Smoking status: Patient reports the use of cigarette tobacco products, 5 cigs a day. Screenin:01 Abuse screen: Denies threats or abuse. Denies injuries from another. Nutritional rv screening: No deficits noted. Tuberculosis screening: No symptoms or risk factors identified. Fall Risk None identified. Assessment: 02:00 General: Appears in no apparent distress. comfortable, Behavior is calm, cooperative. rv Pain: Complains of pain in abdomen Pain radiates to left low back, right low back, right leg and left leg. Neuro: Level of Consciousness is awake, alert, obeys commands, Oriented to person, place, time, situation. Cardiovascular: Patient's skin is warm and dry. Respiratory: Airway is patent. GI: Abdomen is flat, distended, Reports lower abdominal pain, constipation, nausea. Derm: Skin with poor turgor. 03:56 Reassessment: Patient is alert, oriented x 3, equal unlabored respirations, skin rv warm/dry/pink. PATIENT IS STILL COMPLAINING OF ABDOMINAL PAIN. EXPLAINED THE TEST RESULTS TO THE PATIENT. AWAITING RADIOLOGY REPORT. 05:31 Reassessment: Patient appears in no apparent distress at this time. Patient and/or rv family updated on plan of care and expected duration. Pain level reassessed. Patient is alert, oriented x 3, equal unlabored respirations, skin warm/dry/pink. EXPLAINED THE RESULT OF THE CT SCAN. PATIENT UNDERSTOOD AND AGREED WITH THE PLAN OF CARE. DISCHARGED AMBULATORY WITH FAMILY. Patient states feeling better. Patient states symptoms have improved. Vital Signs: 01:56 BP 124 / 96; Pulse 74; Resp 16; Temp 98.5; Pulse Ox 98% on R/A; Weight 70.31 kg; Height rv 5 ft. 6 in. (167.64 cm); Pain 6/10; 03:00 BP 104 / 74; Pulse 66; Resp 16; Pulse Ox 100% on R/A; Pain 6/10; rv 04:00 BP 100 / 55; Pulse 64; Resp 15; Pulse Ox 100% on R/A; rv 05:00 BP 105 / 65; Pulse 65; Resp 15; Temp 98; Pulse Ox 96% on R/A; rv 01:56 Body Mass Index 25.02 (70.31 kg, 167.64 cm) rv ED Course: 01:40 Patient arrived in ED. cl3 01:50 Jorge Alberto Woodall MD is Attending Physician. tw4 01:56 Darian Joseph, EVA is Primary Nurse. rv 01:58 Triage completed. rv 01:59 Arm band placed on Patient placed Patient notified of wait time. rv 02:01 Patient has correct armband on for positive identification. Pulse ox on. NIBP on. rv 02:45 Inserted saline lock: 20 gauge in right antecubital area, using aseptic technique. mg2 Blood collected. by Darian, RN. 03:08 No provider procedures requiring assistance completed. mg2 04:10 CT Abd/Pelvis - IV Contrast Only In Process Unspecified. EDMS 05:31 IV discontinued, intact, bleeding controlled, No redness/swelling at site. Pressure rv dressing applied. Administered Medications: 02:45 Drug: NS 0.9% 1000 ml Route: IV; Rate: 1 bolus; Site: right antecubital; rv 03:52 Follow up: IV Status: Completed infusion; IV Intake: 1000ml rv 02:58 Drug: TORadol 30 mg Route: IVP; Site: right antecubital; mg2 03:55 Follow up: Response: No adverse reaction; Pain is unchanged, physician notified rv 04:39 Drug: morphine 4 mg {Note: RASS 0.} Route: IVP; Site: right antecubital; rv 05:30 Follow up: Response: No adverse reaction; Marked relief of symptoms; Pain is decreased; rv RASS: Alert and Calm (0) 04:39 Drug: Zofran (Ondansetron) 4 mg Route: IVP; Site: right antecubital; rv 05:30 Follow up: Response: No adverse reaction rv Intake: 03:52 IV: 1000ml; Total: 1000ml. rv Outcome: 05:00 Discharge ordered by . tw4 05:31 Discharged to home ambulatory, with family. rv 05:31 Condition: good 05:31 Discharge instructions given to patient, Instructed on discharge instructions, follow up and referral plans. medication usage, Demonstrated understanding of instructions, follow-up care, medications, Prescriptions given X 2. 05:34 Patient left the ED. rv Signatures: Dispatcher [employer] EDMS Jorge Alberto Woodall MD MD tw4 Dejuan Kaufman, RN RN mg2 Darian Joseph, RN RN rv Melissa Montilla cl3
--- NOTE | 2019-06-11 05:02 | EDPHYS ---
Physician Documentation [facility] Name: Becca Nagy Age: 54 yrs Sex: Female : 1965 Arrival Date: 06/11/2019 Time: 01:40 Bed 5 Private MD: ED Physician Jorge Alberto Woodall HPI: 06/10 02:46 This 54 yrs old Female presents to ER via Ambulatory with complaints of tw4 abdominal pain. 02:46 The patient presents with abdominal pain. Onset: The symptoms/episode began/occurred tw4 today. The symptoms radiate to the left flank. Associated signs and symptoms: none. The symptoms are described as constant, sharp. Modifying factors: The symptoms are alleviated by nothing, the symptoms are aggravated by nothing. Severity of pain: At its worst the pain was moderate in the emergency department the pain is unchanged. The patient has not experienced similar symptoms in the past. 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 - Social history:: Smoking status: Patient reports the use of cigarette tobacco products, 5 cigs a day. ROS: 02:52 Constitutional: Negative for fever, chills, and weight loss, Eyes: Negative for injury, tw4 pain, redness, and discharge, Cardiovascular: Negative for chest pain, palpitations, and edema, Respiratory: Negative for shortness of breath, cough, wheezing, and pleuritic chest pain. 02:52 Back: Negative for injury and pain, MS/Extremity: Negative for injury and deformity, Skin: Negative for injury, rash, and discoloration, Neuro: Negative for headache, weakness, numbness, tingling, and seizure. 02:52 Respiratory: 02:52 Abdomen/GI: Positive for abdominal pain, Negative for nausea and vomiting, nausea, vomiting, and diarrhea, nausea, vomiting. Exam: 02:52 Constitutional: This is a well developed, well nourished patient who is awake, alert, tw4 and in no acute distress. Head/Face: Normocephalic, atraumatic. Chest/axilla: Normal chest wall appearance and motion. Nontender with no deformity. No lesions are appreciated. Cardiovascular: Regular rate and rhythm with a normal S1 and S2. No gallops, murmurs, or rubs. Normal PMI, no JVD. No pulse deficits. Respiratory: Lungs have equal breath sounds bilaterally, clear to auscultation and percussion. No rales, rhonchi or wheezes noted. No increased work of breathing, no retractions or nasal flaring. Abdomen/GI: Soft, non-tender, with normal bowel sounds. No distension or tympany. No guarding or rebound. No evidence of tenderness throughout. Back: No spinal tenderness. No costovertebral tenderness. Full range of motion. MS/ Extremity: Pulses equal, no cyanosis. Neurovascular intact. Full, normal range of motion. Neuro: Awake and alert, GCS 15, oriented to person, place, time, and situation. Cranial nerves II-XII grossly intact. Motor strength 5/5 in all extremities. Sensory grossly intact. Cerebellar exam normal. Normal gait. Vital Signs: 01:56 BP 124 / 96; Pulse 74; Resp 16; Temp 98.5; Pulse Ox 98% on R/A; Weight 70.31 kg; Height rv 5 ft. 6 in. (167.64 cm); Pain 6/10; 03:00 BP 104 / 74; Pulse 66; Resp 16; Pulse Ox 100% on R/A; Pain 6/10; rv 04:00 BP 100 / 55; Pulse 64; Resp 15; Pulse Ox 100% on R/A; rv 05:00 BP 105 / 65; Pulse 65; Resp 15; Temp 98; Pulse Ox 96% on R/A; rv 01:56 Body Mass Index 25.02 (70.31 kg, 167.64 cm) rv MDM: 01:50 Patient medically screened. tw4 02:52 Data reviewed: vital signs, nurses notes. Data interpreted: Pulse oximetry: tw4 Interpretation: normal. Counseling: I had a detailed discussion with the patient and/or guardian regarding: the historical points, exam findings, and any diagnostic results supporting the discharge/admit diagnosis. 06/10 02:22 Order name: Basic Metabolic Panel; Complete Time: 04:34 tw4 03 04:34 Interpretation: Normal except: CL 108; GFR 75. tw4 06/10 02:22 Order name: CBC with Diff; Complete Time: 04:34 tw4 03/05 04:35 Interpretation: Within normal limits. 06/10 02:22 Order name: Creatinine for Radiology; Complete Time: 04:34 06/10 04:38 Interpretation: Within normal limits. 06/10 02:22 Order name: Hepatic Function; Complete Time: 04:34 tw06/10 04:34 Interpretation: Normal except: GLOB 4.0; A/G 0.9. 06/10 02:22 Order name: Lipase; Complete Time: 04:34 tw06/10 04:38 Interpretation: Within normal limits. 06/10 03:01 Order name: Urine Microscopic Only; Complete Time: 04:34 mg2 06/10 04:38 Interpretation: Within normal limits. 06/10 02:22 Order name: IV Saline Lock; Complete Time: 02:42 06/10 02:22 Order name: Labs collected and sent; Complete Time: 02:42 06/10 02:37 Order name: CT Abd/Pelvis - IV Contrast Only 06/10 03:01 Order name: Urine Dipstick--Ancillary (enter results); Complete Time: 04:34 mw2 06/10 04:35 Interpretation: Normal except: UESTR 1+; UBLD 1+. 06/10 02:22 Order name: Urine Dipstick-Ancillary (obtain specimen); Complete Time: 02:56 tw4 Administered Medications: 02:45 Drug: NS 0.9% 1000 ml Route: IV; Rate: 1 bolus; Site: right antecubital; rv 03:52 Follow up: IV Status: Completed infusion; IV Intake: 1000ml rv 02:58 Drug: TORadol 30 mg Route: IVP; Site: right antecubital; mg2 03:55 Follow up: Response: No adverse reaction; Pain is unchanged, physician notified rv 04:39 Drug: morphine 4 mg {Note: RASS 0.} Route: IVP; Site: right antecubital; rv 05:30 Follow up: Response: No adverse reaction; Marked relief of symptoms; Pain is decreased; rv RASS: Alert and Calm (0) 04:39 Drug: Zofran (Ondansetron) 4 mg Route: IVP; Site: right antecubital; rv 05:30 Follow up: Response: No adverse reaction rv Disposition: 06/11/19 05:00 Discharged to Home. Impression: Abdominal tenderness, unspecified site. - Condition is Stable. - Discharge Instructions: Abdominal Pain, Adult. - Prescriptions for Bentyl 20 mg Oral Tablet - take 1 tablet by ORAL route every 6 hours As needed; 20 tablet. Ibuprofen 800 mg Oral Tablet - take 1 tablet by ORAL route every 8 hours As needed take with food; 30 tablet. - Medication Reconciliation Form, Thank You Letter, Antibiotic Education, Prescription Opioid Use form. - Follow up: Private Physician; When: Upon discharge from the Emergency Department; Reason: Recheck today's complaints, Continuance of care, Re-evaluation by your physician. - Problem is new. - Symptoms have improved. Signatures: Dispatcher [employer] EDMS Jorge Alberto Woodall MD MD tw4 Dejuan Kaufman, EVA RN mg2 Darian Joseph RN RN rv Corrections: (The following items were deleted from the chart) 05:34 05:00 06/11/2019 05:00 Discharged to Home. Impression: Abdominal tenderness, rv unspecified site. Condition is Stable. Forms are Medication Reconciliation Form, Thank You Letter, Antibiotic Education, Prescription Opioid Use. Follow up: Private Physician; When: Upon discharge from the Emergency Department; Reason: Recheck today's complaints, Continuance of care, Re-evaluation by your physician. Problem is new. Symptoms have improved. tw4
[2019-06-11 05:45] VITALS: BP 105/65; TEMP 98; O2SAT 96
--- NOTE | 2019-06-11 11:16 | RAD REPORT ---
EXAM DESCRIPTION: CT - Abdomen Pelvis W Contrast - 06/11/2019 7:21 am CLINICAL HISTORY: 54-year-old female with abdominal pain, bloody stool, pain across mid and lower ab domen TECHNIQUE: Axial CT imaging of the abdomen and pelvis was performed following the administration of intravenous contrast.. Sagittal and coronal reconstructed images were then performed. The CT stud y is performed according to ALARA (as low as reasonably achievable) or ALARA/IMAGE GENTLY, with autom atic adjustment of mA and/or kV according to patient size. Performed on: 06/11/2019 at 3:37 AM. COMPARISON: Prior CT report from 03/07/2019. The images were not available for review. FINDINGS: Lung bases: The lung bases are clear. There is minimal bibasilar atelectasis and/or fibros is. Liver: The liver is enlarged and measures approximately 22 cm in craniocaudal dimension. No focal hep atic abnormalities are identified. Liver attenuation is within normal limits. Spleen: The spleen is normal is size, configuration and attenuation. Gallbladder and bile duct: The gallbladder is well distended and contains multiple gallstones. Ther e is no biliary ductal dilatation. Pancreas: The pancreas is grossly normal in size and configuration. Adrenal Glands: The adrenal glands are normal in size and configuration. Kidneys: The kidneys are normal in size and configuration. There is no evidence of hydronephrosis. Th ere is no evidence of nephrolithiasis. No definite solid or cystic renal mass lesions are identified. Stomach: The stomach is grossly normal. There is no definite hiatal hernia. Bowel: The bowel gas pattern is non specific and non obstructive. There is scattered colonic divertic ulosis without evidence of saleem diverticulitis. Appendix: The appendix is normal. Free air: There is no evidence of free air. Free fluid: There is no evidence of free fluid. Vasculature: The aorta is normal in caliber and contour. The inferior vena cava is grossly unremarkab le. Lymphadenopathy: No pathologic lymphadenopathy is identified. Bladder: The bladder is incompletely distended on this examination. Reproductive: The uterus is grossly within normal limits. Bones: No acute osseous abnormalities are identified. There are degenerative changes along the visual ized portions of the thoracolumbar spine. There are vacuum discs at multiple levels. Soft tissues: No focal soft tissue abnormalities are identified. IMPRESSION: 1. Overall, no significant change when compared to the prior study. There is no evidence of acute intra-abdominal or intrapelvic pathology. 2. Cholelithiasis without evidence of biliary ductal dilatation. 3. Colonic diverticulosis without evidence of saleem diverticulitis. 4. Hepatomegaly. 5. Degenerative changes of the visualized thoracolumbar spine. Electronically signed by: Lakshmi Villasenor DO 06/11/2019 4:25 AM [employer] Due to temporary technical issues with the PACS/Fluency reporting system, reports are being signed by the in house radiologist as a courtesy to ensure prompt reporting. The interpreting radiologist is f ully responsible for the content of the report.
== END 2019-06-11 05:34 | disposition home or self-care (01) ==
LOC: ER 01:38
DX: R10.819 Abdominal tenderness, unspecified site (principal); I10 Essential (primary) hypertension
CPT/HCPCS: 36415; 74177; 80048; 80076; 81003; 81015; 83690; 85025; 96361; 96374; 96375; 99284; J2405; J7030; Q9967

== ENCOUNTER 2021-01-01 01:28 | Emergency (ER) | payer SELFPAY ==
[2021-01-01 02:01] LABS: Absolute Lymphocytes (CBC) 1.1 K/uL (0.7-4.9); Basophils % 0.6 % (0-1.3); Hematocrit 40.2 % (36.0-45.0); Lymphocytes % 6.5 % (15.3-44.8); MPV 8.6 fL (7.6-11.3); RBC Red Blood Cell Count 4.39 M/uL (3.86-4.86)
[2021-01-01 02:18] LABS: Potassium 3.4 mmol/L (3.5-5.1)
[2021-01-01] MEDS ORDERED: ONDANSETRON 4 MG/2 ML VIAL ONE (02:25)
[2021-01-01] MEDS ORDERED: MORPHINE 4 MG/ML SYR ONE (02:25)
[2021-01-01 04:31] LABS: Absolute Lymphocytes (CBC) 0.6 K/uL (0.7-4.9); Basophils % 0.2 % (0-1.3); Hematocrit 37.8 % (36.0-45.0); Lymphocytes % 4.4 % (15.3-44.8); MPV 8.5 fL (7.6-11.3); RBC Red Blood Cell Count 4.17 M/uL (3.86-4.86)
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
[2021-01-01 05:38] VITALS: O2SAT 100
[2021-01-01 05:41] VITALS: BP 118/79; TEMP 97.7
--- NOTE | 2021-01-01 08:21 | RAD REPORT ---
EXAM DESCRIPTION: RAD - Chest Single View - 01/01/2021 2:33 am CLINICAL HISTORY: RIB PAIN - RIGHT COMPARISON: January 01 CT trauma study; portable chest November 2016 TECHNIQUE: AP portable chest image was obtained 01/01/2021 2:33 am . FINDINGS: Lung volumes are low. Trace apical pneumothorax is present on the right. Anterior pneumoth orax component seen on the traumagram is radiographically occult on portable imaging. No new or enlar ging pleural fluid collection. No pulmonary contusion or progressive lung parenchymal process. Heart and vasculature are normal. Lat eral ninth rib on the right displaced fracture again noted matching the CT study. There is subcutaneo us emphysema at the lateral lower chest fracture site as well as the supraclavicular and base of the neck region on the right. No acute aortic findings suspected. IMPRESSION: Small right-sided pneumothorax has not enlarged since the CT trauma study. Anterior comp onent is radiographically occult on portable imaging. No new or progressive lung parenchymal process. Displaced lateral right ninth rib fracture is unchanged. The amount of subcutaneous emphysema has not changed.
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
== END 2021-01-01 05:21 | disposition short-term general hospital (02) ==
LOC: ER 01:28
DX: S27.0XXA Traumatic pneumothorax, initial encounter (principal); S22.41XA Multiple fractures of ribs, right side, initial encounter for closed fracture; S36.115A Moderate laceration of liver, initial encounter; W03.XXXA Other fall on same level due to collision with another person, initial encounter; Y93.89 Activity, other specified; F17.210 Nicotine dependence, cigarettes, uncomplicated
CPT/HCPCS: 36415; 70450; 71045; 71260; 72125; 74177; 80048; 80320; 82565; 85025; 85610; 85730; 96374; 96375; 99284; J2405; Q9967